=== PATIENT | male | born 1975 | race African-American/Black ===

== ENCOUNTER 2024-09-27 14:15 | Emergency (ER) | payer MEDICAID ==
[2024-09-27 16:26] VITALS: TEMP 36.9
[2024-09-27] MEDS: DEXAMETHASONE 4MG TABLET PO ONE (16:33)
[2024-09-27] MEDS: IPRATROPIUM BROMIDE (0.02%) 0.5MG/2.5ML NEB HHN STA (16:47)
[2024-09-27] MEDS: ALBUTEROL (0.083%) 2.5MG/3ML NEB HHN STA (16:47)
[2024-09-27 16:48] VITALS: PULSE 109; RESP 16; O2SAT 96
[2024-09-27 17:26] LABS: BASOPHILS % 0.2 % (0.0-2.0); EOSINOPHILS % 1.7 % (0.0-5.0); HEMATOCRIT. 36.3 % (42.0-52.0); HEMOGLOBIN. 12.1 g/dL (14.0-18.0); LYMPHOCYTES % 34.2 % (20.0-50.0); MEAN CORPUSCULAR HEMOGLOBIN 29.8 pg (28.0-32.0); MEAN CORPUSCULAR HGB CONC 33.3 g/dL (31.0-37.0); MEAN CORPUSCULAR VOLUME 89.4 fL (80.0-94.0); MEAN PLATELET VOLUME 7.5 fl (7.4-10.4); MONOCYTES % 7.7 % (2.0-8.0); NEUTROPHILS % 56.2 % (40.0-76.0); PLATELET 462 x1000/uL (130-400); RED BLOOD CELL COUNT 4.06 mill/uL (4.7-6.1); RED CELL DISTRIBUTION WIDTH 16.1 % (11.6-14.6); WHITE BLOOD COUNT 10.6 x1000/uL (4.5-11.0)
[2024-09-27 17:33] LABS: CHLORIDE 105 mEq/L (98-107); POTASSIUM 4.2 mEq/L (3.5-5.1); SODIUM 140 mEq/L (136-145)
[2024-09-27 17:35] LABS: CALCIUM 9.2 mg/dL (8.7-10.4); CARBON DIOXIDE 24 mEq/L (21-32)
[2024-09-27 17:40] LABS: GLUCOSE 107 mg/dL (70-105)
[2024-09-27 17:41] LABS: ALANINE AMINOTRANSFERASE 12 IU/L (10-49); UREA NITROGEN BLOOD 12 mg/dL (9-23)
[2024-09-27 17:42] LABS: ALBUMIN 4.1 g/dL (3.2-4.8); ASPARTATE AMINOTRANSFERASE 15 IU/L (<34); BILIRUBIN DIRECT < 0.1 mg/dL (<=3.0)
[2024-09-27 17:43] LABS: BILIRUBIN TOTAL 0.2 mg/dL (0.1-1.0); PROTEIN TOTAL 8.4 g/dL (6.0-8.3)
[2024-09-27 17:44] LABS: INR 0.9; PROTHROMBIN TIME 10.2 sec (9.6-11.0)
[2024-09-27] MEDS ORDERED: AZIT250T12 MT (20:54)
[2024-09-27] MEDS ORDERED: BENZ200C52 MT (20:54)
[2024-09-27 21:15] VITALS: BP 130/65; PULSE 83; RESP 14; O2SAT 97
== END 2024-09-27 21:31 | disposition home or self-care (01) ==
LOC: ER 14:15
DX: J18.9 Pneumonia, unspecified organism (principal); R59.9 Enlarged lymph nodes, unspecified; R07.9 Chest pain, unspecified; Z88.0 Allergy status to penicillin
CPT/HCPCS: 80076; 80048; 83690; 85025; 85610; 36415; 71045; 71250; 74176; 94640; 93005; 99285; J8540; Z7610 ×3; 94664